=== PATIENT | female | born 1965 | race Caucasian/White ===

== ENCOUNTER 2017-08-07 08:28 | Day surgery (SDC) | payer OTHER ==
--- NOTE | 2017-08-01 17:15 | HP ---
Amended report to enter cosigning doctor. PREOPERATIVE HISTORY AND PHYSICAL: DATE OF SURGERY: 08/07/17 DATE OF OFFICE VISIT: 08/01/17 ATTENDING SURGEON: Federica Louise MD* (dictated by NIKOLAY Mcnally). PROCEDURES: Left knee arthroscopic surgery, possible meniscus surgery. CHIEF COMPLAINT: Left knee pain. HISTORY OF PRESENT ILLNESS: Maddie is a 51-year-old female who presents to clinic for left knee pain and catching. The pain is laterally based and occasionally the knee locks on her. She failed conservative measures and therefore agreed to undergo a left knee arthroscopic surgery, possible meniscus surgery. PAST MEDICAL HISTORY: Asthma, GERD, hypothyroidism, depression, anxiety, and melanoma. PAST SURGICAL HISTORY: Sinus surgery in 1998, tubal ligation in 1999, partial hysterectomy in 2011, cholecystectomy in 2014, and melanoma excision in 2016. MEDICATIONS: 1. Pantoprazole sodium 40 mg, take 1 by mouth every day. 2. Bupropion HCl 150 mg, 1 in the morning with food. 3. Relpax 40 mg, take 1 by mouth as needed for headache, repeat in 2 hours, maximum of 2 days a week. 4. Patanol 0.1% one drop both eyes every day as needed for allergies. 5. Zovirax 5% topical cream, applied 5 times a day x4 days. 6. Xopenex HFA 45 mcg per ACT, inhaled 2 puffs by mouth every 4 hours as needed. 7. Meloxicam 15 mg once daily with food. 8. Zonisamide 40 mg, take 2 to3 capsules by mouth every night as directed. 9. Tylenol extra strength 500 mg as needed for headache. 10. Levothyroxine sodium 15 mcg, one by mouth every day. 11. Montelukast sodium 10 mg one by mouth daily. 12. Loratadine 10 mg one by mouth daily. 13. Zoloft 100 mg yul-dco-k-half tabs by mouth daily. 14. Melatonin 3 mg one by mouth at night. 15. Ritalin 20 mg by mouth every day. 16. Refresh 1.4% one drop both eyes 5 times a day. 17. Advair Diskus 250/50 mcg per dose, inhaled 1 puff by mouth twice a day. 18. Nasacort Allergy 24HR 55 mcg per ACT, use 1 spray to each nostril twice daily. 19. Amitriptyline HCl 150 mg, take 1 by mouth at bedtime. 20. Oxybutynin chloride ER 5 mg, 1 by mouth every day. ALLERGIES: AUGMENTIN and NEURONTIN. FAMILY HISTORY: Positive for cancer. SOCIAL HISTORY: The patient is disabled. She denies tobacco or alcohol use. She is right hand dominant. REVIEW OF SYSTEMS: A 14-point review of systems was reviewed with the patient. Positive for current complaint and for GERD and hypothyroidism, otherwise negative. Denies fevers, chills, night sweats, chest pain, shortness of breath. Denies history of DVT or PE. Denies history of bleeding disorder. PHYSICAL EXAMINATION GENERAL: Well-developed, well-nourished 51-year-old female, in no acute distress. Alert and oriented x3. Appropriate mood and affect. VITALS: Height 63, weight 193. Blood pressure 120/72, respiratory rate 16, and temperature 97.9, pain level 3. BMI 34.2. HEENT: Normocephalic, atraumatic. PERRLA. Throat clear. NECK: Supple. PULMONARY: Lungs are clear to auscultation bilaterally. No wheezing, rhonchi or rales. CARDIO: Regular rate and rhythm. S1 and S2. No murmurs, gallops or rubs. No edema. ABDOMEN: Positive bowel sounds. Soft, nontender. MUSCULOSKELETAL: Left lower extremity, skin is intact, no wounds or erythema. Moderate effusion, tenderness over the lateral joint line. Mildly tender medially. Range of motion 2 to 120 degrees. Stable varus and valgus stress. Stable Jorge. Negative posterior drawer. Calf soft and nontender, +2 dorsalis pedis pulse. Sensation is intact to light touch distally. NEURO: Alert and oriented x3. Cranial nerves grossly intact. Sensation is intact to light touch. STUDIES: MRI revealed a joint effusion, mild cartilage changes, with possible loose body. IMPRESSION: Left knee effusion with loose body. PLAN: The patient is scheduled to undergo a left knee arthroscopic surgery, possible meniscus surgery, with Dr. Louise on 08/07/17. She will return to the office in 10 to 14 days postop for followup and suture removal. Percocet was sent to her pharmacy for postop pain management. NIKOLAY MCNALLY [id number]/[facility] #: [id number] [facility] HOSPITALJosiah
[~2017-08-07 08:28] MED LIST: Buffered Lidocaine 0.9% SYRIN* 5 ML/SYR SYRINGE INTRADERM ONE; Dexamethasone IV* 4 MG/ML 1 ML (4 MG) IV SLOW PU ONE; Dexamethasone IV* 4 MG/ML 1 ML (4 MG) ONE
[2017-08-07] MEDS ORDERED: Clindamycin 900 MG IVPREMIX(* 900 MG/50 ML SDV IV ONE (09:15)
[2017-08-07] MEDS ORDERED: Midazolam* 1 MG/ML 5 ML VIAL (5 MG) ONE (10:04)
[2017-08-07] MEDS ORDERED: Bupivacaine 0.25% SDV* 30 ML ONE (10:22)
[2017-08-07] MEDS ORDERED: fentaNYL* 50 MCG/ML 2 ML VIAL (100 MCG VIAL) ONE (10:40)
[2017-08-07] MEDS ORDERED: Ondansetron INJ* 2 MG/ML VIAL ONE (10:41)
[2017-08-07] MEDS ORDERED: Propofol* 10 MG/ML 20 ML BTL IV PUSH ONE (10:41)
[2017-08-07] MEDS ORDERED: Ketorolac INJ* 30 MG/ML 1 ML VIAL ONE (10:41)
[2017-08-07] MEDS ORDERED: Chloroprocaine 2%* 20 ML VIAL ONE (10:42)
[2017-08-07] MEDS ORDERED: Lidocaine 1% MPF wEPI 200,000* 30 ML SDV ONE (10:49)
[2017-08-07] MEDS ORDERED: oxyCODONE/Acetamin 5/325 MG* TAB PO PRN (11:51)
[2017-08-07] MEDS ORDERED: Ondansetron INJ* 2 MG/ML VIAL IV PRN (11:51)
[2017-08-07] MEDS ORDERED: fentaNYL* 50 MCG/ML 2 ML VIAL (100 MCG VIAL) IV PRN (11:51)
[2017-08-07 13:29] VITALS: BP 103/63
--- NOTE | 2017-08-08 02:38 | OP ---
CC: PCP, Dr. Goodwin * DATE OF OPERATION: 08/07/17 - [facility] DATE OF : 67 SURGEON: Federica Louise MD REED REPAIRER: NIKOLAY Douglas. An patient clerical assistant is needed for the entirety of the case to help with positioning, retraction and was utilized throughout all portion of the case. ANESTHESIOLOGIST: Dr. Arndt. ANESTHESIA: Spinal. PRE-OP DIAGNOSIS: Left knee loose body with mild osteoarthritis. POST-OP DIAGNOSES: Left knee mild osteoarthritis with multiple loose bodies, lateral meniscal tear and chondrosis in the trochlea as well as lateral compartment, left plica. OPERATIVE PROCEDURE: Left knee arthroscopy with: 1. Minimal loose body at least 2 or greater than 5 mm. 2. Partial lateral meniscectomy. 3. Chondroplasty of the trochlea as well as the lateral femoral condyle and plica excision. COMPLICATIONS: None. ESTIMATED BLOOD LOSS: Minimal. INDICATIONS: Maddie De La Paz is a 51-year-old active lady who had symptoms of mechanical symptoms including catching and locking; she had an MRI that confirmed chondrosis with possible loose body. Her symptoms were consistent with that she had failed conservative management. She has had injections and this is impacting her quality of life. After an extensive discussion of the risks and benefits of the operative versus nonoperative treatment, she has elected to proceed with surgery. Risks and benefits included but are not limited to bleeding, infection, damage to nerves, vessels, surrounding structures, wound nonhealing, persistent pain, need for further surgery, scarring, stiffness, incomplete relief of symptoms, and risks of anesthesia. DESCRIPTION OF PROCEDURE: The patient was greeted in the preoperative area by the attending surgeon, correct extremity was marked and consent was confirmed. The patient was brought back to the operating suite, where she was placed in supine position on the operating table. She then underwent spinal anesthesia in the seated position, after which an unsterile tourniquet was placed in the left leg and the lateral post was positioned. The left leg was then prepped and draped in the usual sterile fashion beginning with chlorhexidine soap, scrub , and alcohol wipe and a final prep with ChloraPrep. After appropriate surgical pause indicating site, side, procedure, and administration of antibiotics, the knee was intra-articularly injected with 1% lidocaine with epi. The lateral portal was made with an 11 blade. Scope was positioned in the joint and the joint was examined. There were multiple loose bodies that were evident. Most of these were very small. The patella had grade 2 changes with small unstable flaps. The trochlea had areas of grade 3 changes with unstable flaps. The medial and lateral gutter had small loose bodies that were present. The scope was brought to the notch and there was a moderate sized plica that was apparent. The ACL and PCL were intact. The medial portal was made in an outside in fashion. The shaver was used to debride back some of the fat pad to expose the knee. The plica was apparent medially. This was then removed using shaver as well as electrocautery device to maintain hemostasis at all times. The medial compartment was examined. There were grade 0 to 1 changes of the medial tibial plateau, grade 1 and 2 changes of the medial femoral condyle but no unstable flaps. The medial meniscus was intact. There were loose bodies that were present here that were removed using the shaver. The knee was then placed in a figure-4 position and there were grade 2 changes of the lateral femoral condyle with mild unstable flaps. The lateral plateau had unstable flaps as well as with grade 1 to 2 changes. The lateral meniscus had anterior horn tearing, which was debrided back using the shaver. There was fraying along the body of the meniscus as well that was debrided back using a shaver. The knee was thoroughly lavaged. All debris was removed. There were at least two loose pieces that were approximately 0.5 mm or more. These were removed carefully. Chondroplasty of the trochlea was then done as well as patella using the shaver to remove any unstable flaps. The knee was thoroughly lavaged. Portals were then irrigated thoroughly and closed with 3-0 nylon in interrupted fashion. The knee was intra-articularly injected with 0.25 % Marcaine plain. Sterile dressings were applied as well as a Cryo/Cuff. She was awoken from anesthesia and transferred to PACU in stable condition. Post op plan: She will be WBAT. Discharged on pain medication. DVT prophylaxis was discussed with the patient and deferred due to no previous or personal history. I will see the patient back in 10 to 14 days. [id number]/[facility] #: [id number] MYA
== END 2017-08-07 13:21 | disposition home or self-care (01) ==
LOC: OREAST 08:28
PROVIDERS: ATTEND Orthopaedic Surgery
DX: M17.12 Unilateral primary osteoarthritis, left knee (principal); M23.42 Loose body in knee, left knee; M23.342 Other meniscus derangements, anterior horn of lateral meniscus, left knee; M22.2X2 Patellofemoral disorders, left knee; M67.52 Plica syndrome, left knee; E66.9 Obesity, unspecified; J45.909 Unspecified asthma, uncomplicated; K21.9 Gastro-esophageal reflux disease without esophagitis; E03.9 Hypothyroidism, unspecified; F32.9 Major depressive disorder, single episode, unspecified; F41.9 Anxiety disorder, unspecified; M25.462 Effusion, left knee; Z85.820 Personal history of malignant melanoma of skin; Z88.1 Allergy status to other antibiotic agents; Z88.8 Allergy status to other drugs, medicaments and biological substances; Z68.34 Body mass index [BMI] 34.0-34.9, adult
CPT/HCPCS: J1100; J1885; J2001; J2250; J2400; J2405; J2704; J3010

== ENCOUNTER 2017-12-15 08:58 | Day surgery (SDC) | payer OTHER ==
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
[2017-12-15] MEDS ORDERED: Lidocaine 1% INJ* 10 MG/ML 30 ML SDV ONE (10:30)
[2017-12-15] MEDS ORDERED: fentaNYL* 50 MCG/ML 2 ML VIAL (100 MCG VIAL) ONE (10:45)
[2017-12-15] MEDS ORDERED: Midazolam* 1 MG/ML 2 ML VIAL (2 MG) ONE (10:45)
[2017-12-15] MEDS ORDERED: Lidocaine 2% PF * 5 ML VIAL ONE (10:47)
[2017-12-15] MEDS ORDERED: Propofol* 10 MG/ML 20 ML BTL IV PUSH ONE (10:47)
[2017-12-15] MEDS ORDERED: Naloxone* 0.4 MG/ML 1 ML VIAL IV PRN (11:03)
[2017-12-15 11:35] VITALS: BP 134/66
--- NOTE | 2017-12-16 11:38 | OP ---
DATE OF OPERATION: 12/15/17 - [facility] DATE OF : 67 SURGEON: Paulina Dooley MD SCHEME TECHNICIAN: NIKOLAY Martinez ANESTHESIA: Local MAC. PRE-OP DIAGNOSES: De Quervain's tenosynovitis and metacarpal boss of the right hand and wrist. POST-OP DIAGNOSES: De Quervain's tenosynovitis and metacarpal boss of the right hand and wrist. OPERATIVE PROCEDURE: Removal of metacarpal boss right hand and de Quervain's release, right wrist. ESTIMATED BLOOD LOSS: Zero. TOURNIQUET TIME: About 20 minutes. INDICATIONS FOR PROCEDURE: Maddie is a 52-year-old woman who has painful de Quervain's tenosynovitis of the right wrist and also painful mass at the base of her second metacarpal. She presents for removal of the mass and de Quervain' s release. DESCRIPTION OF PROCEDURE: The patient was brought to the operating room, was given a sedation anesthetic and local infiltration of a total of 15 cc of 1% plain lidocaine on the radial aspect of the wrist and the dorsal aspect of the hand. The skin of her right hand and forearm was prepped and draped in the usual sterile fashion. The hand and forearm were exsanguinated and the tourniquet elevated to 250 mmHg. A longitudinal incision was made centered at the tip of the radial styloid. It was dissected bluntly through the subcutaneous tissue down to the first dorsal compartment. Branches of the radial sensory nerve were located and retracted by the surgical scrub technician, Jenn Gallagher. The first dorsal compartment was then incised longitudinally completely, releasing the APL and EPB tendons which were in the same compartment. There was abundant tenosynovitis surrounding the APL tendon. This was debrided. The wound was irrigated and the skin edges were reapproximated with 4-0 nylon suture. Next, a transverse incision was made and centered over the palpable mass at the base of the second metacarpal, subperiosteally dissected the portion of the insertion of the ECRB tendon and then the metacarpal boss was removed with an osteotome and rongeur. The bony bed was filled with bone wax and then the periosteum repaired with 2-0 Vicryl suture. The wound was irrigated and the skin edges reapproximated with 4-0 nylon suture. The wound was dressed with Xeroform, 4x4, Webril, and an Travon wrap. The patient tolerated the procedure well and was brought to the recovery room in good condition. [id number]/[facility] #: [id number] MTDD
== END 2017-12-15 11:52 | disposition home or self-care (01) ==
LOC: OREAST 08:58
PROVIDERS: ATTEND Orthopaedic Surgery
DX: M65.4 Radial styloid tenosynovitis [de Quervain] (principal); M25.741 Osteophyte, right hand; E03.9 Hypothyroidism, unspecified; J45.909 Unspecified asthma, uncomplicated; E78.5 Hyperlipidemia, unspecified; Z85.820 Personal history of malignant melanoma of skin
CPT/HCPCS: 88305; 88311; J2250; J2704; J3010

== ENCOUNTER 2019-06-13 20:41 | Emergency (ER) | payer OTHER ==
[2019-06-13 23:17] VITALS: BP 161/80
== END 2019-06-14 00:27 | disposition left against medical advice (07) ==
LOC: ED 20:41
DX: Z53.21 Procedure and treatment not carried out due to patient leaving prior to being seen by health care provider (principal)
CPT/HCPCS: 99282

== ENCOUNTER 2019-06-14 16:08 | Emergency (ER) | payer OTHER ==
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
[2019-06-14 16:34] VITALS: BP 152/86
[2019-06-14] MEDS ORDERED: Ketorolac *IM* INJ* 60 MG/2 ML VIAL IM ONE (16:49)
== END 2019-06-14 18:10 | disposition home or self-care (01) ==
LOC: UCEAST 16:08
DX: R51 Headache (principal); J45.909 Unspecified asthma, uncomplicated; K21.9 Gastro-esophageal reflux disease without esophagitis; F41.9 Anxiety disorder, unspecified; F32.9 Major depressive disorder, single episode, unspecified
CPT/HCPCS: 70450; 96372; 99212; G0463; J1885